=== PATIENT | male | born 1980 | race Caucasian/White ===

== ENCOUNTER 2020-05-03 19:40 | Inpatient (IN) | payer OTHER, MEDICAID, SELFPAY ==
--- NOTE | 2020-05-03 | DI.RAD.S_ITS ---
PROCEDURE: XR CHEST 1V INDICATIONS: Post chest tube placement TECHNIQUE: One view of the chest was acquired. COMPARISON: [facility], , XR CHEST 1V, 05/03/2020, 19:48. FINDINGS: Surgical changes and devices: There is interval placement of a small caliber right-sided chest tube, the tip is near apex. Lungs and pleura: There is re-expansion of right lung. No obvious pneumothorax is seen on the current study. Linear scarring/atelectasis in right upper lung field is seen. Left lung is clear. Mediastinum: Mediastinal contours appear normal. Heart size is normal. Bones and chest wall: No suspicious bony lesions. Overlying soft tissues appear unremarkable. IMPRESSION: Interval placement of a right-sided chest tube with re-expansion of right lung. No obvious pneumothorax is seen on the current study. Linear scarring/atelectasis in right upper lung field. Left lung is clear. Dictated by: Gabe Guzman M.D. on 05/03/2020 at 21:29 Approved by: Gabe Guzman M.D. on 05/03/2020 at 21:30
[2020-05-03 19:42] VITALS: BP 137/100; PULSE 76; RESP 13; TEMP 36.4; O2SAT 96; BMI 25.1
--- NOTE | 2020-05-03 19:48 | DI.RAD.S_ITS ---
PROCEDURE: XR CHEST 1V INDICATIONS: chest pain TECHNIQUE: One view of the chest was acquired. COMPARISON: None. FINDINGS: Surgical changes and devices: None. Lungs and pleura: Large right-sided pneumothorax is seen. Left lung is clear. Mediastinum: Mediastinal contours appear normal. Heart size is normal. Bones and chest wall: No suspicious bony lesions. Overlying soft tissues appear unremarkable. IMPRESSION: Large right pneumothorax. Findings were reported to Dr. Severino in the ER at 8:13 p.m. On 05/03/2020. Dictated by: Gabe Guzman M.D. on 05/03/2020 at 20:11 Approved by: Gabe Guzman M.D. on 05/03/2020 at 20:14
[2020-05-03 19:57] VITALS: BMI 25.1
[2020-05-03 20:00] LABS: Add Manual Diff / Slide Review NO; Basophils Absolute Auto 100 /uL (0-100); Basophils Percent Auto 0.7 % (0-2); Eosinophils Absolute Auto 300 /uL (0-450); Eosinophils Percent Auto 1.8 % (2-4); Hematocrit 39.6 % (41-53); Hemoglobin 13.1 g/dL (13.5-17.5); Lymphocytes Absolute Auto 3000 /uL (1100-4500); Lymphocytes Percent Auto 21.1 % (25-40); Mean Corpuscular HGB Conc 33.1 % (30-36); Mean Corpuscular Hemoglobin 29.6 PG (26-34); Mean Corpuscular Volume 89.7 fL (80-100); Monocytes Absolute Auto 900 /uL (0-900); Monocytes Percent Auto 6.5 % (3-14); Neutrophils Absolute Auto 9800 /uL (1500-7000); Neutrophils Percent Auto 69.9 % (50-75); Platelet Count 339 X10^3/uL (150-400); Red Blood Cell Count 4.42 X10^6/uL (4.5-5.9); Red Cell Distribution Width 13.4 % (11.6-14.8)
[2020-05-03 20:08] LABS: INR 1.1 (0.9-1.3); Prothrombin Time 12.1 SECONDS (10.1-12.7)
[2020-05-03 20:10] LABS: PTT Partial Thromboplastin Tim 32 SECONDS (26.4-36.2)
[2020-05-03 20:11] VITALS: BP 127/86; PULSE 84; RESP 22; O2SAT 97
[2020-05-03 20:12] LABS: Alanine Aminotransferase 30 IU/L (<50); Albumin 4.3 g/dL (3.5-5.0); Albumin Globulin Ratio 1.4 (1.0-2.8); Alkaline Phosphatase 52 U/L (38-126); Aspartate Aminotransferase 30 IU/L (17-59); Bilirubin Total 0.6 mg/dL (0.2-1.3); Blood Urea Nitrogen 17 mg/dL (9-20); Calcium 9.4 mg/dL (8.4-10.2); Carbon Dioxide 28 mmol/L (22-32); Chloride 102 mmol/L (98-107); Creatine Kinase 83 U/L (55-170); Estimated Glomerular Filt Rate > 60.0 mL/min (>60); Glucose 122 mg/dL (70-100); Lipase 54 U/L (23-300); Potassium 3.8 mmol/L (3.4-5.1); Sodium 136 mmol/L (137-145); Total Protein 7.3 g/dL (6.3-8.2)
--- NOTE | 2020-05-03 20:14 | ED.CHESTPAIN ---
HPI - Chest Pain General Chief Complaint: Chest Pain Stated Complaint: Pain in his chest, hard to breath,cough Time Seen by Provider: 05/03/20 20:14 Source: patient Mode of arrival: Ambulatory Limitations: no limitations History of Present Illness HPI narrative: Otherwise healthy 40-year-old male here for evaluation of chest discomfort and shortness of breath. Patient states that he has been short of breath for the past couple days however this morning symptoms seemed to acutely get worse. They have been continuing throughout the day. Since the sudden increase in his symptoms he does not think that they have worsened since that time. He has never had anything like this in the past. Patient states that he does smoke methamphetamine and his symptoms did seem to worsen shortly after smoking this morning. Denies any other medications. Denies any other medical problems. Describes the pain as sharp on his right side. Related Data Allergies Allergy/AdvReac Type Severity Reaction Status Date / Time No Known Drug Allergies Allergy Verified 05/03/20 19:49 Review of Systems Constitutional Constitutional: Denies fever(s) and Denies headache(s) ENT Ears, Nose, Mouth, and Throat: Denies headache(s) Cardiovascular Cardiovascular: Reports chest pain, Reports chest pain at rest, Denies rapid heart rate, Denies irregular heart rhythm, Reports dyspnea and Reports dyspnea on exertion Respiratory Respiratory: Denies cough, Reports dyspnea and Reports dyspnea on exertion Gastrointestinal Gastrointestinal: Denies abdominal pain, Denies nausea and Denies vomiting Genitourinary Genitourinary: Denies dysuria Genitourinary: Denies dysuria Musculoskeletal Musculoskeletal: Denies arthralgias and Denies myalgias Integumentary/Breasts Skin/Breast: Denies rash Neurologic Neurologic: Denies behavioral changes and Denies headache(s) Psychiatric Psychiatric: Denies behavioral changes Hematologic/Lymphatic Hematologic/Lymphatic: Denies easy bleeding and Denies easy bruising Patient History Medical History Drug abuse (Acute) Social History household members: significant other Smoking Status: Current every day smoker Smoking Status: Current every day smoker tobacco type: vaping alcohol intake frequency: holidays/special occasions only Substance Use Type: heroin Exam Initial Vital Signs Initial Vital Signs: Vital Signs Temperature 97.5 F L 05/03/20 19:42 Pulse Rate 76 05/03/20 19:42 Respiratory Rate 13 05/03/20 19:42 Blood Pressure 137/100 H 05/03/20 19:42 Pulse Oximetry 96 05/03/20 19:42 Const General: cooperative, No comfortable (Uncomfortable), well developed and well groomed Limitations: mental status not altered HENFL Head: normal to inspection and normocephalic Resp Effort & Inspection: not labored, no retractions and tachypneic Auscultation: breath sounds absent on the right Cardio Rate: regular rate Rhythm: regular rhythm GI Inspection: non-distended Palpation: soft Skin Lesions: no lesions Rashes: no rashes Neuro General: patient alert and patient awake Cognition: normal cognition Speech: speech normal Extrem General: normal to inspection and capillary refill normal Psych Appearance: grossly normal and well kempt Procedures Chest Tube Chest Tube 1: Chest Tube Location: right and anterior axillary line Chest Tube Prep: Yes betadine prep and sterile drapes applied Local Anesthetic: lidocaine 1% and with epi Amount of anesthesia used (mL): 8 Post Procedure: sutured to skin and sterile dressing applied Tube Drainage: none Post Procedure CXR?: Yes Patient Tolerated Procedure: Yes Progress: Leonel pneumothorax pigtail catheter used Course Orders Ordered: ED Orders 05/03/20 21:51 Consult to General Surgery Urgent 05/04/20 06:00 XR chest 1V Stat Lorazepam (Ativan) 0.5 mg IV Q2HR PRN PRN Reason: Anxiety Last Admin: 05/04/20 00:42 Dose: 0.5 mg Documented by: CODI Morphine Sulfate (Morphine) 4 mg IV Q4HR PRN PRN Reason: Pain, Mild (1-3) Last Admin: 05/04/20 04:16 Dose: 4 mg Documented by: Admin: 05/03/20 22:34 Dose: 4 mg Documented by: MIR Ondansetron HCl (Zofran) 4 mg IV Q4HR PRN PRN Reason: Nausea And Vomiting Sodium Chloride (Normal Saline 0.9% Flush) 10 ml IV PRN PRN PRN Reason: Flush Last Admin: 05/04/20 04:16 Dose: 10 ml Documented by: CODI Sodium Chloride (Normal Saline 0.9% Flush) 10 ml IV BID NATALIIA Discontinued Medications Hydromorphone HCl (Dilaudid) 1 mg IV NOW ONE Stop: 05/03/20 20:43 Last Admin: 05/03/20 20:49 Dose: 1 mg Documented by: MERCY Vital Signs Vital signs: Vital Signs - 8 hr 05/03/20 19:42 Temperature 97.5 F L Pulse Rate 76 Respiratory Rate 13 Blood Pressure 137/100 H Pulse Oximetry 96 MDM - Chest Pain Lab Data Attestation: I reviewed the patient's lab results. Result diagrams: 05/03/20 19:48 05/03/20 19:48 Labs: Lab Results 05/03/20 05/03/20 05/03/20 Range/Units 19:48 19:48 19:48 WBC 14.0 H (4.5-11.0) X10^3/uL RBC 4.42 L (4.5-5.9) X10^6/uL Hgb 13.1 L (13.5-17.5) g/dL Hct 39.6 L (41-53) % MCV 89.7 (80-100) fL MCH 29.6 (26-34) PG MCHC 33.1 (30-36) % RDW 13.4 (11.6-14.8) % Plt Count 339 (150-400) X10^3/uL Neut % (Auto) 69.9 (50-75) % Lymph % (Auto) 21.1 L (25-40) % [place] % (Auto) 6.5 (3-14) % Eos % (Auto) 1.8 L (2-4) % Baso % (Auto) 0.7 (0-2) % Neut # (Auto) 9800 H (0593-2854) /uL Lymph # (Auto) 3000 (5182-1668) /uL [place] # (Auto) 900 (0-900) /uL Eos # (Auto) 300 (0-450) /uL Baso # (Auto) 100 (0-100) /uL PT 12.1 (10.1-12.7) SECONDS INR 1.1 (0.9-1.3) APTT 32 (26.4-36.2) SECONDS Sodium 136 L (137-145) mmol/L Potassium 3.8 (3.4-5.1) mmol/L Chloride 102 (98-107) mmol/L Carbon Dioxide 28 (22-32) mmol/L BUN 17 (9-20) mg/dL Creatinine 0.74 (0.66-1.25) mg/dL Estimated GFR > 60.0 (>60) mL/min BUN/Creatinine Ratio 23.0 H (6-22) Glucose 122 H (70-100) mg/dL Calcium 9.4 (8.4-10.2) mg/dL Total Bilirubin 0.6 (0.2-1.3) mg/dL AST 30 (17-59) IU/L ALT 30 (<50) IU/L Alkaline Phosphatase 52 (38-126) U/L Total Creatine Kinase 83 (55-170) U/L CK-MB (CK-2) TNP CK-MB (CK-2) Rel Index TNP Troponin I < 0.012 (0.01-0.034) ng/mL Total Protein 7.3 (6.3-8.2) g/dL Albumin 4.3 (3.5-5.0) g/dL Globulin 3.0 (1.7-4.1) g/dL Albumin/Globulin Ratio 1.4 (1.0-2.8) Lipase 54 (23-300) U/L COVID-19 PCR (Negative) 05/03/20 Range/Units 20:21 WBC (4.5-11.0) X10^3/uL RBC (4.5-5.9) X10^6/uL Hgb (13.5-17.5) g/dL Hct (41-53) % MCV (80-100) fL MCH (26-34) PG MCHC (30-36) % RDW (11.6-14.8) % Plt Count (150-400) X10^3/uL Neut % (Auto) (50-75) % Lymph % (Auto) (25-40) % [place] % (Auto) (3-14) % Eos % (Auto) (2-4) % Baso % (Auto) (0-2) % Neut # (Auto) (3854-0959) /uL Lymph # (Auto) (2436-4749) /uL [place] # (Auto) (0-900) /uL Eos # (Auto) (0-450) /uL Baso # (Auto) (0-100) /uL PT (10.1-12.7) SECONDS INR (0.9-1.3) APTT (26.4-36.2) SECONDS Sodium (137-145) mmol/L Potassium (3.4-5.1) mmol/L Chloride (98-107) mmol/L Carbon Dioxide (22-32) mmol/L BUN (9-20) mg/dL Creatinine (0.66-1.25) mg/dL Estimated GFR (>60) mL/min BUN/Creatinine Ratio (6-22) Glucose (70-100) mg/dL Calcium (8.4-10.2) mg/dL Total Bilirubin (0.2-1.3) mg/dL AST (17-59) IU/L ALT (<50) IU/L Alkaline Phosphatase (38-126) U/L Total Creatine Kinase (55-170) U/L CK-MB (CK-2) CK-MB (CK-2) Rel Index Troponin I (0.01-0.034) ng/mL Total Protein (6.3-8.2) g/dL Albumin (3.5-5.0) g/dL Globulin (1.7-4.1) g/dL Albumin/Globulin Ratio (1.0-2.8) Lipase (23-300) U/L COVID-19 PCR Negative (Negative) Imaging Data Post chest tube placement: Radiologist's Impression: [address] [address] XRay Report Signed Patient: Gary Stiles#: [id number] : 1980Acct:[id number] Age/Sex: 40 / MDate of Service: 05/03/20 Loc: ED Accession Number: [id number] Procedure: XR chest 1V Ordering Provider: Dipak Severino D.O. PROCEDURE: XR CHEST 1V INDICATIONS: Post chest tube placement TECHNIQUE: One view of the chest was acquired. [facility], 19:48. FINDINGS: Surgical changes and devices: There is interval placement of a small caliber right-sided chest tube, the tip is near apex. Lungs and pleura: There is re-expansion of right lung. No obvious pneumothorax is seen on the current study. Linear scarring/atelectasis in right upper lung field is seen. Left lung is clear. Mediastinum: Mediastinal contours appear normal. Heart size is normal. Bones and chest wall: No suspicious bony lesions. Overlying soft tissues appear unremarkable. IMPRESSION: Interval placement of a right-sided chest tube with re-expansion of right lung. No obvious pneumothorax is seen on the current study. Linear scarring/atelectasis in right upper lung field. Left lung is clear. Dictated by: Gabe Guzman M.D. on 05/03/2020 at 21:29 Approved by: Gabe Guzman M.D. on 05/03/2020 at 21:30 Chest x-ray: Radiologist's Impression: [address] [address] XRay Report Signed Patient: Gary Stiles#: [id number] : 1980Acct:[id number] Age/Sex: 40 / MDate of Service: 05/03/20 Loc: ED Accession Number: [id number] Procedure: XR chest 1V Ordering Provider: Dipak Severino D.O. PROCEDURE: XR CHEST 1V INDICATIONS: chest pain TECHNIQUE: One view of the chest was acquired. COMPARISON: None. FINDINGS: Surgical changes and devices: None. Lungs and pleura: Large right-sided pneumothorax is seen. Left lung is clear. Mediastinum: Mediastinal contours appear normal. Heart size is normal. Bones and chest wall: No suspicious bony lesions. Overlying soft tissues appear unremarkable. IMPRESSION: Large right pneumothorax. Findings were reported to Dr. Severino in the ER at 8:13 p.m. On 05/03/2020. Dictated by: Gabe Guzman M.D. on 05/03/2020 at 20:11 Approved by: Gabe Guzman M.D. on 05/03/2020 at 20:14 ECG Data Attestation: I personally reviewed and interpreted this ECG as follows: Prior ECG tracings: not available for review Interpretation: Sinus rhythm Ventricular rate is 73 Normal axis Normal QRS Normal QTC No ST T wave changes MDM Narrative Medical decision making narrative: Chest x-ray shows right-sided pneumothorax. A Leonel pneumothorax pigtail placed right anterior axillary line as described above without complication. His repeat chest x-ray shows re-expansion of the lung. I discussed the case with Dr. Hurst with general surgery who will admit for further evaluation and treatment. Discharge Plan Departure Patient Disposition: Admitted As Inpatient Clinical Impression: Spontaneous pneumothorax Discharge Date/Time: 05/03/20 22:15 Admit Date/Time: 05/03/20 21:53 Admit Provider: Clinton Hurst
[2020-05-03 20:25] LABS: HEMOLYSIS 15 (0-50); Troponin I < 0.012 ng/mL (0.01-0.034)
[2020-05-03 20:30] VITALS: BP 126/83; PULSE 82; RESP 24; O2SAT 95
[2020-05-03] MEDS: HYDROMORPHONE 1 MG INJ IV (20:49)
[2020-05-03 21:41] LABS: COVID19 -Nasal RAPID Negative (Negative)
[2020-05-03 22:26] VITALS: BMI 25.1
[2020-05-03] MEDS: MORPHINE 2 MG/ML INJ 4 MG IV (22:34)
[2020-05-03 22:47] VITALS: BP 124/76; PULSE 78; RESP 20; TEMP 36.7; O2SAT 98
--- NOTE | 2020-05-03 22:57 | PC.NURSE ---
2215- Patient admitted to room 231. Patient is alert and in obvious pain. Chest tube to Right chest, dennise pleur vac to 20cm suction. No leak appreciated. Patient assisted to the bed, trousers removed, oriented to the room. Declines to put any belongings in the safe. Patient medicated for pain per order.
[2020-05-03 23:40] VITALS: BP 112/70; PULSE 95; RESP 18; TEMP 37.1; O2SAT 97
[2020-05-04] VITALS (7 sets, daily range): BP systolic 112–127; BP diastolic 70–95; PULSE 68–88; RESP 14–17; TEMP 36.6–37.2; O2SAT 94–98
[2020-05-04] MEDS: LORazepam 2 MG/ML INJ 0.5 MG IV ×2 (00:42→23:28)
[2020-05-04] MEDS: SODIUM CHLORIDE 0.9% FLUSH 10 ML IV ×4 (04:16→23:28)
[2020-05-04] MEDS: MORPHINE 2 MG/ML INJ 4 MG IV ×3 (04:16→17:58)
--- NOTE | 2020-05-04 06:00 | DI.RAD.S_ITS ---
PROCEDURE: XR CHEST 1V INDICATIONS: Pneumothorax TECHNIQUE: One view of the chest was acquired. COMPARISON: [facility], , XR CHEST 1V, 05/03/2020, 21:11. FINDINGS: Surgical changes and devices: Right-sided pigtail chest tube has been repositioned over the mid chest. Lungs and pleura: Lungs are clear. No pleural effusions. Moderate sized right-sided pneumothorax. Mediastinum: Mediastinal contours appear normal. Heart size is normal. Bones and chest wall: No suspicious bony lesions. Overlying soft tissues appear unremarkable. IMPRESSION: Moderate-sized right-sided pneumothorax. Dictated by: Araceli Drew MD, PhD on 05/04/2020 at 8:44 Approved by: Araceli Drew MD, PhD on 05/04/2020 at 8:45
--- NOTE | 2020-05-04 06:40 | PM.HP.1 ---
History of Present Illness History of Present Illness Chief complaint: Pain in his chest, hard to breath,cough Patient History Medical History Drug abuse (Acute) Family & Social History Social History: household members significant other Prior Living Arrangements House Safety & Behavioral: Feels Safe in Current Yes Environment Been Physically Hurt or No Threatened By a Person Suicidal Ideation Description None Suicide Plan Description No Plan Tobacco & Substance use: Smoking Status Current every day smoker alcohol intake frequency holiday/special occasion Substance Use Type heroin Meds Home Medications and Allergies Allergies Allergy/AdvReac Type Severity Reaction Status Date / Time No Known Drug Allergies Allergy Verified 05/03/20 19:49 Review of Systems Review of Systems ROS: Yes All systems reviewed with the patient and are negative except as otherwise documented Exam Vital Signs (past 8 hours): - 05/03/20 22:47 05/03/20 23:40 05/04/20 04:05 Temperature 98.1 F 98.8 F 98.9 F Pulse Rate 78 95 H 88 Respiratory Rate 20 18 14 Blood Pressure 124/76 112/70 124/95 H Pulse Oximetry 98 97 94 Oxygen Delivery Method Room Air Oxygen Flow Rate 0 Narrative Exam Narrative: Patient complaining of moderate pain at the pigtail chest tube insertion site in the right chest Vital signs are stable he is afebrile Lungs have good breath sounds bilaterally Heart regular rhythm no murmur 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 No abdominal tenderness no masses Extremities are unremarkable Neurologic intact Objective Labs Result Diagrams: 05/03/20 19:48 05/03/20 19:48 Labs: Laboratory Results - last 24 hr 05/03/20 05/03/20 05/03/20 19:48 19:48 19:48 WBC 14.0 H RBC 4.42 L Hgb 13.1 L Hct 39.6 L MCV 89.7 MCH 29.6 MCHC 33.1 RDW 13.4 Plt Count 339 Neut % (Auto) 69.9 Lymph % (Auto) 21.1 L [place] % (Auto) 6.5 Eos % (Auto) 1.8 L Baso % (Auto) 0.7 Neut # (Auto) 9800 H Lymph # (Auto) 3000 [place] # (Auto) 900 Eos # (Auto) 300 Baso # (Auto) 100 PT 12.1 INR 1.1 APTT 32 Sodium 136 L Potassium 3.8 Chloride 102 Carbon Dioxide 28 BUN 17 Creatinine 0.74 Estimated GFR > 60.0 BUN/Creatinine Ratio 23.0 H Glucose 122 H Calcium 9.4 Total Bilirubin 0.6 AST 30 ALT 30 Alkaline Phosphatase 52 Total Creatine Kinase 83 CK-MB (CK-2) TNP CK-MB (CK-2) Rel Index TNP Troponin I < 0.012 Total Protein 7.3 Albumin 4.3 Globulin 3.0 Albumin/Globulin Ratio 1.4 Lipase 54 COVID-19 PCR 05/03/20 20:21 WBC RBC Hgb Hct MCV MCH MCHC RDW Plt Count Neut % (Auto) Lymph % (Auto) [place] % (Auto) Eos % (Auto) Baso % (Auto) Neut # (Auto) Lymph # (Auto) [place] # (Auto) Eos # (Auto) Baso # (Auto) PT INR APTT Sodium Potassium Chloride Carbon Dioxide BUN Creatinine Estimated GFR BUN/Creatinine Ratio Glucose Calcium Total Bilirubin AST ALT Alkaline Phosphatase Total Creatine Kinase CK-MB (CK-2) CK-MB (CK-2) Rel Index Troponin I Total Protein Albumin Globulin Albumin/Globulin Ratio Lipase COVID-19 PCR Negative Assessment & Plan Assessment & Plan narrative: Patient with a spontaneous right pneumothorax initial chest x-ray showing a total pneumothorax without tension. Emergency room physician placed a pigtail catheter in the right apex. This has shown full expansion of the right lung. Patient continues to have a small air leak with coughing noted in the Pleur-evac. Plans continue suction on the right pigtail chest tube serial x-rays. Patient is a known heroin user and we will observe his status accordingly.
--- NOTE | 2020-05-04 13:27 | CM.DANOTE ---
DCP assessment: EMR reviewed: patient is a 40 yr old male who was admitted for Spontaneous Pneumothorax. Patients PCP is Dr. Hurst. Cm/Rn met with patient barry prior to him falling asleep during visit. patient was alert and oriented x3 at time of visit. Patient has a HX of heroin use and currently lives in [place] with his father and significant other. patient stated he does not want treatment for his heroin use at this time. However patient did seem to waiver on this statement a few moments later. Cm/Rn will check in with patient agian tomorrow to get a clearer idea if patient will want IP rehab for his heroin use or not at D/C. Patient did stated he is Independent with all ADL's at baseline. Patient at this point became vary tired and was unable to stay awake. Cm/Rn will follow up with patient again tomorrow to determine if there are any resources he will need. I: [employer] and Medicaid. Plan: D/C home with OP rehab information or IP rehab depending on recovery and patient choice for rehab... CM will follow up tomorrow to determine safe d/C plan. Juana Tesfaye RN Discharge Planning/Care Management CM Discharge Assessment Start: 05/04/20 13:22 Freq: Status: Active Protocol: Document 05/04/20 13:22 HS (Rec: 05/04/20 13:26 HS [id number]) Discharge Planning Assessment Assigned Litigation Secretary Juana Tesfaye RN DPOA/Assigned Designee Name Pineda Stiles (father) Contact Information [phone] Advance Directives? No History Provided By Medical Record Has Patient been admitted in last 30 No days? Prior Living Arrangements House Household Members significant other,family Comment patient lives with father and significant other Independent with ADL's Yes Caregiver for Another No Discharge Plan Home with Home Health Referrals Initiated Home Health Medicare Choice List Provided Yes Whiteboard Updated in Patient Room with Yes name and ext. # of Litigation Secretary Review Status In Process Next Review Type Continued Stay Review
[2020-05-04] MEDS: KETOROLAC 30 MG/ML VIAL IV (14:11)
--- NOTE | 2020-05-04 18:48 | PC.NURSE ---
Evening shift note Pt resting in bed, A/Ox3, c/o pain 5/10. Chest tube to Right chest, dennise pleur vac to 20cm suction, was informed in report that there is a small leak, surgeon is aware. Assessment completed as documented, informed pt next pain med is due at 181, pt stated that he is fine until then. Bed low and locked, call light within reach, no further needs at this time, will continue to monitor.
[2020-05-05] VITALS (7 sets, daily range): BP systolic 113–132; BP diastolic 65–80; PULSE 72–90; RESP 16–18; TEMP 36.6–37.1; O2SAT 94–99
--- NOTE | 2020-05-05 07:40 | DI.RAD.S_ITS ---
PROCEDURE: XR CHEST 1V INDICATIONS: follow up for pneumothorax TECHNIQUE: One view of the chest was acquired. COMPARISON: [facility], , XR CHEST 1V, 05/04/2020, 6:45. FINDINGS: Surgical changes and devices: Right-sided chest tube is stable. Lungs and pleura: Lungs are clear. No pleural effusions. Right-sided pneumothorax is increased in size compared to May 04, 2020 now moderate to large. Mediastinum: Mediastinal contours appear normal. Heart size is normal. Bones and chest wall: No suspicious bony lesions. Overlying soft tissues appear unremarkable. IMPRESSION: Enlarging right-sided pneumothorax. Finding discussed with Carrie Sanabria RN of the ordering physician's office on May 05, 2020 at 10:15 a.m. Dictated by: Araceli Drew MD, PhD on 05/05/2020 at 8:44 Approved by: Araceli Drew MD, PhD on 05/05/2020 at 10:15
--- NOTE | 2020-05-05 10:43 | P.PN_ITS ---
Subjective Subjective Date Patient Seen: 05/05/20 Time Patient Seen: 10:43 Interval history: No acute events overnight. Pt satting 94-99% on room air. Pt denies pain or SOB. Exam Vital Signs (past 8 hours): - 05/05/20 08:35 05/05/20 10:26 Temperature 98.8 F Pulse Rate 72 Respiratory Rate 17 Blood Pressure 121/65 Pulse Oximetry 98 97 Oxygen Delivery Method Room Air Oxygen Flow Rate 2 Narrative Exam Narrative: GENERAL: Well groomed and cooperative. Appears stated age. Answers questions promptly and appropriately. Vital signs noted. HENT: Normocephalic, atraumatic. Hearing intact. Oral mucosa is pink and moist. EYES: Conjunctiva pink, sclera white, no periorbital swelling. CARDIOVASCULAR: Regular rate. No pedal edema. RESPIRATORY: Non-tachypneic, breathing comfortably on room air. Pigtail tube in place on right chest, with moderate leak on chest tube box, and intermittent tidaling seen GASTROINTESTINAL: Abdomen soft and non-distended GENITALURINARY: No flank tenderness. MUSCULOSKELETAL: Equal tone and mass bilaterally. SKIN: Warm, dry, soft, appropriate color for ethnicity. No other lesions, rashes, or wounds. NEURO: Alert and Oriented X 3. No gross sensory deficits, or cognitive issues. PSYCH: Appropriate affect and mood. Objective Imaging Chest x-ray: My impression: Reviewed all CXR's since ER. Yesterday and today CXR's show enlarging pneumo. Radiologist's impression: Enlarging right-sided pneumothorax Labs Result Diagrams: 05/03/20 19:48 05/03/20 19:48 Assessment & Plan Assessment and plan (1) Spontaneous pneumothorax: Status: Acute (2) Smoker: Status: Acute Assessment & Plan narrative: This is a 40-year-old man on hospital day 3 from a spontaneous pneumothorax for which he had a right pigtail chest tube placed and was admitted to the hospital. This morning a noted on his chest x-ray that his pneumothorax on the right side has not resolved, and may be slightly larger than yesterday. His chest tube appears to be in a good position, as there is tidal ing seen on the chest tube box. However, he has a moderate leak and this enlarging pneumo. Locally he is not really symptomatic from the enlarging pneumo and so we have some time to try to get the lung to expand. I have explained to him that he may need to have his chest tube repositioned or larger chest tube placed. I explained him that if the lung does not fully expand, we will not be able to remove the chest tube, and he may need to be transferred for management by a thoracic surgeon. He emphatically refuses having the chest tube manipulated replaced at this time. He is not using an incentive spirometer, nasal cannula oxygen, or any ambulation. He is motivated to try anything short of a procedure to replace or just his chest tube. We will try these interventions, prior to adjusting or replacing the chest tube. Plan: DVT prophylaxis Repeat chest x-ray tomorrow morning, or sooner if symptoms arise Use incentive spirometer as much as possible Cough, deep breathe Nasal cannula oxygen Ambulate while chest tube connected to suction Continue chest tube to 20 cm of water on the box, and continuous wall suction Bowel regimen COVID-19 COVID-19 status: Negative Result date/Date tested (Pos, Neg/Pending): 05/03/20 Time Spent With Patient Time with patient: 25 - 35 minutes Quality VTE Deep Vein Thrombosis/Pulmonary Embolism Present on Admission: No
[2020-05-05] MEDS: SODIUM CHLORIDE 0.9% FLUSH 10 ML IV ×2 (10:51→21:15)
[2020-05-05] MEDS: LORazepam 2 MG/ML INJ 0.5 MG IV ×2 (10:51→16:39)
[2020-05-05] MEDS: KETOROLAC 30 MG/ML VIAL IV (10:51)
--- NOTE | 2020-05-05 11:05 | PC.NURSE ---
PT QUIET AND NOT VERY TALKATIVE- INSTRUCTED USE OF I-S AND HE USES PROPERLY TO A LEVEL OF 2500+ X 10-12X FEW TIMES THIS AM, LUNGS DIMINISHED BUT CLEAR- REFUSED BOTH STOOL SOFTENER AND HEPARIN SQ - EXPLAINED THE RATIONALE FOR BOTH - HE CONTINUES TO DECLINE AT THIS TIME- WILL ASK AGAIN IN A BIT, HE REPORTS HAVING NO BM SINCE ADMIT AND STATES THIS IS NOT ABNORMAL FOR HIM TO GO EVERY FEW DAYS- PO INTAKE MARGINAL - STRONGLY ENCOURAGED TO BE UP AND AROUND IN ROOM AND PT HAS BEEN MINIMALLY COMPLIANT WITH THIS REQUEST BY BOTH AND THIS RN
[2020-05-05] MEDS: DOCUSATE 100 MG CAPSULE PO (14:56)
[2020-05-05] MEDS: OXYCODONE IR 5 MG TABLET PO (14:56)
[2020-05-06] VITALS (16 sets, daily range): BP systolic 117–145; BP diastolic 77–90; PULSE 72–106; RESP 10–18; TEMP 36.3–37.3; O2SAT 94–98; BMI 22.5
--- NOTE | 2020-05-06 | DI.RAD.S_ITS ---
PROCEDURE: XR CHEST 1V INDICATIONS: new chest tube. TECHNIQUE: One view of the chest was acquired. COMPARISON: [facility], CR, XR CHEST 1V, 05/05/2020, 5:49. [facility], CR, XR CHEST 1V, 05/04/2020, 6:45. [facility], CR, XR CHEST 1V, 05/03/2020, 21:11. [facility], CR, XR CHEST 1V, 05/03/2020, 19:48. [facility], CR, XR CHEST 1V, 05/06/2020, 5:31. FINDINGS: Surgical changes and devices: Since the prior examination, the right-sided pleural drain has been removed and replaced with a standard chest tube. The chest tube is seen along the midline, pointed superiorly. Lungs and pleura: There is a trace remaining right-sided pneumothorax. No left-sided pneumothorax. No pleural effusions or infiltrates are seen. Mediastinum: Mediastinal contours appear normal. Heart size is normal. Bones and chest wall: No suspicious bony lesions. Overlying soft tissues appear unremarkable. IMPRESSION: Placement of a new right-sided chest tube, with near complete resolution of the previously seen right-sided pneumothorax. Dictated by: Beny Parker M.D. on 05/06/2020 at 15:40 Approved by: Beny Parker M.D. on 05/06/2020 at 15:41
[2020-05-06] MEDS: ACETAMINOPHEN 325 MG TABLET 650 MG PO (01:52)
[2020-05-06] MEDS: OXYCODONE IR 5 MG TABLET PO ×2 (01:52→20:40)
--- NOTE | 2020-05-06 05:49 | PC.NURSE ---
Broker Note-Patient has been awake all night, sitting up in bed drawing. Using I.S., has 2L NC on intermittently, SpO2 >94%, denies respiratory distress, CT patent, still has 1+ intermittent airleak, scant serous drainage, Rt LS diminished with some airflow auscultated. Medicated with 5mg oxycodone and Tylenol for pain. VSS. CXR done.
--- NOTE | 2020-05-06 07:00 | DI.RAD.S_ITS ---
PROCEDURE: XR CHEST 1V INDICATIONS: interval change, pneumothorax TECHNIQUE: One view of the chest was acquired. COMPARISON: [facility], , XR CHEST 1V, 05/05/2020, 5:49. FINDINGS: Surgical changes and devices: Right-sided chest tube is stable. Lungs and pleura: Right-sided pneumothorax increased in size compared to May 05, 2020. Lungs are clear. No pleural effusions. Mediastinum: Mediastinal contours appear normal. Heart size is normal. Bones and chest wall: No suspicious bony lesions. Overlying soft tissues appear unremarkable. IMPRESSION: Right-sided pneumothorax increased in size compared to May 05, 2020. Dictated by: Araceli Drew MD, PhD on 05/06/2020 at 8:02 Approved by: Araceli Drew MD, PhD on 05/06/2020 at 8:03
--- NOTE | 2020-05-06 07:45 | PM.PN.1 ---
Subjective Subjective Date Patient Seen: 05/06/20 Time Patient Seen: 07:45 Interval history: pt has continued to use IS without re-expansion of his lung on CXR. He denies SOB. Exam Vital Signs (past 8 hours): - 05/06/20 01:06 05/06/20 01:45 Temperature 98.6 F Pulse Rate 76 Respiratory Rate 18 Blood Pressure 117/81 Pulse Oximetry 97 97 Oxygen Delivery Method Room Air,Nasal Cannula Oxygen Flow Rate 2 Narrative Exam Narrative: GENERAL: Well groomed and cooperative. Appears stated age. Answers questions promptly and appropriately. Vital signs noted. HENT: Normocephalic, atraumatic. Hearing intact. Oral mucosa is pink and moist. EYES: Conjunctiva pink, sclera white, no periorbital swelling. CARDIOVASCULAR: Regular rate. No pedal edema. RESPIRATORY: Non-tachypneic, breathing comfortably on room air. Pigtail tube in place on right chest, no leak on chest tube box, no tidaling GASTROINTESTINAL: Abdomen soft and non-distended GENITALURINARY: No flank tenderness. MUSCULOSKELETAL: Equal tone and mass bilaterally. SKIN: Warm, dry, soft, appropriate color for ethnicity. No other lesions, rashes, or wounds. NEURO: Alert and Oriented X 3. No gross sensory deficits, or cognitive issues. PSYCH: Appropriate affect and mood. Objective Imaging Chest x-ray: My impression: Right lung not re-expanded, worse than yesterday; tube looks kinked Radiologist's impression: Read pending Labs Result Diagrams: 05/03/20 19:48 05/03/20 19:48 Assessment & Plan Assessment and plan (1) Spontaneous pneumothorax: Status: Acute (2) Smoker: Status: Acute Assessment & Plan narrative: This is a 40-year-old man on hospital day 4 from a spontaneous pneumothorax for which he had a right pigtail chest tube placed on 05/03 and was admitted to the hospital. Yesterday his CXR showed a large pneumo and I discussed with him the need for a new chest tube. He preferred to work on IS to try and expand the lung. His chest tube was working as we could see tidaling and a leak, but today his CXR is worse, and the chest tube appears kinked. There is no tidaling on inspiration, so I believe the tube is not working at all. I have recommended a replacement with a larger tube. The patient refuses to have this done without sedation. I will discuss with anesthesia about doing it in the OR or ICU later today. He has eaten recently, so we will need to wait until later today for that reason. Plan: hold DVT prophylaxis NPO Chest tube placement under anesthesia later today COVID-19 COVID-19 status: Negative Result date/Date tested (Pos, Neg/Pending): 05/03/20 Time Spent With Patient Time with patient: 25 - 35 minutes Quality VTE Deep Vein Thrombosis/Pulmonary Embolism Present on Admission: No
[2020-05-06] MEDS: SODIUM CHLORIDE 0.9% 1,000 ML 80 ML IV (08:20)
[2020-05-06] MEDS: SODIUM CHLORIDE 0.9% FLUSH 10 ML IV (08:20)
--- NOTE | 2020-05-06 09:23 | CM.DPC ---
DCP Cont: Per Surgeon, pt's chest tube seems to be kinked and not working and plan for new larger chest tube placement today around 1400 in the O.R. under sedation. SW met bedside with pt and explained role and he confirms that his father and [facility] are available and able to provide assist at d/c and pt states that he is fairly upset that he has to undergo another chest tube placement. SW inquired about pt's heroin use and he confirms that he has used heroin for a long time, this is not something new and is very aware of the community resources for treatment including Medication Assisted Tx options for Suboxone/Methadone clinics and is currently not interested in community resources and feels he knows how to access them if he later changes his mind. Pt still in some discomfort and willing to participate but provides very brief answers. Pt's one concern is his higher risk of future need for chest tube and may be more willing to consider reduction in heroin use if he understands at d/c that drug use could increase his risk for spontaneous pneumothorax. Plan: CATHY printed off additional community CD tx resources to provide to pt at d/c with discharge pwk and plan is home in a few days with [facility] Other for assist. SW to follow after second chest tube placement today around 1400. JAMIA Torres
--- NOTE | 2020-05-06 15:19 | PC.NURSE ---
Day Shift Pt NPO from 0700 for chest tube replacement in OR today. Pt denied pain throughout shift. Brought down to OR by 2 RNs at 1515.
[2020-05-06] MEDS: CEFAZOLIN 2 GM/100 ML FROZ.PIGGY IV (15:38)
--- NOTE | 2020-05-06 16:05 | P.OP_ITS ---
Operative Date/Time/Diagnoses Date of procedure: 05/06/20 Time of procedure: 16:05 Pre-op diagnosis: persistent pneumothorax with pigtail chest tube in place Post-op diagnosis: same Procedure & Clinicians Procedure: right chest tube thoracostomy Same procedure as scheduled: Yes Indications: 40 yo man with spontaneous pneumothorax, with persistent pneumothorax after initial re-expansion following pigtail chest tube placement. Because of pain and discomfort during his prior chest tube procedure causing severe distress, the patient refused chest tube replacement without anesthesia. The anesthesiologist was consulted to provide anesthesia for the procedure. Surgeon: Lisa Nino Click Yes if Unassisted: Yes Anesthesia Type: General Operative Notes Findings: Appropriate bell of air upon entering the chest cavity, good re- expansion of the lung on post procedure CXR Specimen(s): none sent Applied: other (Right 28 Fr. chest tube) Estimated Blood Loss (mL): 1 Procedure in detail: The patient was brought into the OR, placed supine on the OR table. Sequential compression devices were placed on both legs and turned on. Appropriate pre operative antibiotics were given. General anesthesia was induced and the patient was intubated with an LMA. The pigtail chest tube was removed. The right chest was prepped and draped in sterile fashion for chest tube placement. Surgical timeout was conducted. Local anesthetic was infiltrated over the fourth rib in the mid axillary line. A 2cm incision was made over the rib with a 15 blade. Dissection was carried down through the muscle of the chest wall, just over the rib and the pleura was opened bluntly with a hemostat. A bell of air came out of the chest cavity. A 28 Fr chest tube was introduced and advanced toward the apex. The chest tube was secured to the skin with O silk suture, and dressed with 4x4's and silk tape. It was connected to the chest tube box and adjusted to 20cm H2O on the box, and the box was connected to continuous wall suction. The patient was then awakened from anesthesia and extubated. Needle, sponge, and instrument counts were correct x 2 at the end of the case. The patient was transferred to the PACU in stable condition. Post procedure CXR was completed and showed good re-expansion of the right lung. Complications: none Post-operative Condition: stable Disposition: PACU
--- NOTE | 2020-05-06 16:19 | SUR.OPER ---
28 fr straight chest tube placed
[2020-05-06] MEDS: BUPIVACAINE 0.25% W/ EPI 30 ML VIAL INJ (16:23)
[2020-05-06] MEDS: KETOROLAC 30 MG/ML VIAL IV (16:31)
[2020-05-06] MEDS: DOCUSATE 100 MG CAPSULE PO (20:39)
[2020-05-07] VITALS (7 sets, daily range): BP systolic 119–130; BP diastolic 76–81; PULSE 73–102; RESP 16–18; TEMP 36.6–36.9; O2SAT 94–98
[2020-05-07] MEDS: MORPHINE 4 MG/ML INJ IV ×2 (00:08→08:24)
[2020-05-07] MEDS: SODIUM CHLORIDE 0.9% FLUSH 10 ML IV ×4 (00:09→22:01)
[2020-05-07 05:06] LABS: Add Manual Diff / Slide Review NO; Basophils Absolute Auto 100 /uL (0-100); Basophils Percent Auto 0.7 % (0-2); Eosinophils Absolute Auto 400 /uL (0-450); Eosinophils Percent Auto 3.7 % (2-4); Hematocrit 38.5 % (41-53); Hemoglobin 12.8 g/dL (13.5-17.5); Lymphocytes Absolute Auto 3400 /uL (1100-4500); Lymphocytes Percent Auto 27.8 % (25-40); Mean Corpuscular HGB Conc 33.2 % (30-36); Mean Corpuscular Hemoglobin 30.1 PG (26-34); Mean Corpuscular Volume 90.6 fL (80-100); Monocytes Absolute Auto 900 /uL (0-900); Monocytes Percent Auto 7.1 % (3-14); Neutrophils Absolute Auto 7300 /uL (1500-7000); Neutrophils Percent Auto 60.7 % (50-75); Platelet Count 332 X10^3/uL (150-400); Red Blood Cell Count 4.25 X10^6/uL (4.5-5.9); White Blood Cell Count 12.1 X10^3/uL (4.5-11.0)
--- NOTE | 2020-05-07 07:00 | DI.RAD.S_ITS ---
PROCEDURE: XR CHEST 1V INDICATIONS: pneumothorax TECHNIQUE: One view of the chest was acquired. COMPARISON: [facility], , XR CHEST 1V, 05/06/2020, 16:07. FINDINGS: Surgical changes and devices: Right-sided chest tube. Lungs and pleura: Lungs are clear. No pleural effusions. Small a buckle right-sided pneumothorax is stable in size. Mediastinum: Mediastinal contours appear normal. Heart size is normal. Bones and chest wall: No suspicious bony lesions. Overlying soft tissues appear unremarkable. IMPRESSION: Stable small apical right pneumothorax. Dictated by: Araceli Drew MD, PhD on 05/07/2020 at 8:43 Approved by: Araceli Drew MD, PhD on 05/07/2020 at 8:44
[2020-05-07] MEDS: LORazepam 2 MG/ML INJ 0.5 MG IV ×2 (08:27→12:54)
[2020-05-07] MEDS: OXYCODONE IR 5 MG TABLET PO ×3 (10:42→22:01)
--- NOTE | 2020-05-07 14:23 | PC.NURSE ---
AM shift Pt writhing in bed this AM, 10/10 pain. Medicated with Morphine and ativan. Chest tube with minimal output overnight, cont suction at the wall. 20cm Added Toradol and oxycodone, staggering meds to get better pain control. Pt expresses frustration with increased pain since increased size of Chest tube yesterday. Discussed POC and plan for meds to stagger. Pt appears agreeable to this plan. Declined ritesh, education about constipation r/t increased opiate use. Pt verbalizes understanding, but concerned about having bowel movement in significant pain. Discussed options of miralax, will discuss with Dr Nino. Report given to Soraida BENNETT for 221 acute care transfer. Enc Pt use of IS, which he is doing very well this afternoon, while pain is better controlled. Continue to enc ambulation in room while attached to suction. Pt is sitting up at edge of bed and mobilzing to use urinal with assist.
--- NOTE | 2020-05-07 16:32 | P.PN_ITS ---
Subjective Subjective Date Patient Seen: 05/07/20 Time Patient Seen: 16:32 Interval history: Pt had some pain at the chest tube insertion site last night. Denies SOB. Exam Vital Signs (past 8 hours): - 05/07/20 15:45 Temperature 98.2 F Pulse Rate 73 Respiratory Rate 17 Blood Pressure 119/78 Pulse Oximetry 95 Oxygen Delivery Method Room Air Oxygen Flow Rate 0 Narrative Exam Narrative: GENERAL: Sleeping, but awakes upon calling his name; Answers questions promptly and appropriately. Vital signs noted. HENT: Normocephalic, atraumatic. Hearing intact. Oral mucosa is pink and moist. EYES: Conjunctiva pink, sclera white, no periorbital swelling. CARDIOVASCULAR: Regular rate. No pedal edema. RESPIRATORY: Non-tachypneic, breathing comfortably on room air. 28 [address] chest tube in place on right chest; no apparent leak GASTROINTESTINAL: Abdomen soft and non-distended GENITALURINARY: No flank tenderness. MUSCULOSKELETAL: Equal tone and mass bilaterally. SKIN: Warm, dry, soft, appropriate color for ethnicity. No other lesions, rashes, or wounds. NEURO: Alert and Oriented X 3. No gross sensory deficits, or cognitive issues. PSYCH: Appropriate affect and mood. Objective Imaging Chest x-ray: My impression: Tiny apical pneumo on right Labs Result Diagrams: 05/07/20 04:36 05/03/20 19:48 Labs: Laboratory Results - last 24 hr 05/07/20 04:36 WBC 12.1 H RBC 4.25 L Hgb 12.8 L Hct 38.5 L MCV 90.6 MCH 30.1 MCHC 33.2 RDW 13.0 Plt Count 332 Neut % (Auto) 60.7 Lymph % (Auto) 27.8 [place] % (Auto) 7.1 Eos % (Auto) 3.7 Baso % (Auto) 0.7 Neut # (Auto) 7300 H Lymph # (Auto) 3400 [place] # (Auto) 900 Eos # (Auto) 400 Baso # (Auto) 100 Assessment & Plan Assessment & Plan narrative: 40 yo man POD#1 s/p chest tube replacement with 28Fr chest tube. Tiny apical pneumo remains on CXR. Will continue suction, IS, and recheck CXR tomorrow AM. Plan: DVT ppx ambulate in room chest tube to suction pain control with PO and IV pain med AM CXR tomorrow COVID-19 COVID-19 status: Negative Result date/Date tested (Pos, Neg/Pending): 05/03/20 Time Spent With Patient Time with patient: 15-24 minutes Quality VTE Deep Vein Thrombosis/Pulmonary Embolism Present on Admission: No
[2020-05-07] MEDS: DOCUSATE 100 MG CAPSULE PO (22:01)
[2020-05-07] MEDS: HEPARIN 5,000 UNIT/ML VIAL 5000 UNIT SUBCUT (22:01)
[2020-05-08 00:55] VITALS: O2SAT 93
[2020-05-08] MEDS: MORPHINE 4 MG/ML INJ IV (00:58)
[2020-05-08] MEDS: SODIUM CHLORIDE 0.9% FLUSH 10 ML IV ×3 (00:59→21:28)
[2020-05-08 01:00] VITALS: BP 122/81; PULSE 83; RESP 16; TEMP 36.8; O2SAT 93
[2020-05-08] MEDS: OXYCODONE IR 5 MG TABLET PO (06:39)
--- NOTE | 2020-05-08 07:00 | DI.RAD.S_ITS ---
PROCEDURE: XR CHEST 1V INDICATIONS: resolving pneumothorax TECHNIQUE: One view of the chest was acquired. COMPARISON: [facility], CR, XR CHEST 1V, 05/03/2020, 19:48. [facility], CR, XR CHEST 1V, 05/05/2020, 5:49. [facility], CR, XR CHEST 1V, 05/06/2020, 5:31. [facility], CR, XR CHEST 1V, 05/06/2020, 16:07. [facility], CR, XR CHEST 1V, 05/07/2020, 5:20. FINDINGS: Surgical changes and devices: A thoracostomy tube is present on the right projecting to the medially at the T5-T6 level. Lungs and pleura: There is a small pneumothorax, unchanged. Lungs are clear. No pleural effusions. Mediastinum: Mediastinal contours appear normal. Heart size is normal. Bones and chest wall: No suspicious bony lesions. Overlying soft tissues appear unremarkable. Mild subcutaneous emphysema in the right hemithorax. IMPRESSION: Stable right apical pneumothorax. Dictated by: Anamika Wilson M.D. on 05/08/2020 at 9:11 Approved by: Anamika Wilson M.D. on 05/08/2020 at 9:14
--- NOTE | 2020-05-08 07:22 | P.PN_ITS ---
Subjective Subjective Date Patient Seen: 05/08/20 Time Patient Seen: 07:22 Interval history: No acute events over night. Pt is constipated and has pain at chest tube site. Exam Vital Signs (past 8 hours): - 05/08/20 00:55 05/08/20 01:00 Temperature 98.3 F Pulse Rate 83 Respiratory Rate 16 Blood Pressure 122/81 Pulse Oximetry 93 93 Oxygen Delivery Method Room Air Oxygen Flow Rate 0 Narrative Exam Narrative: GENERAL: Sleeping, but awakes upon calling his name; Answers questions promptly and appropriately. Vital signs noted. HENT: Normocephalic, atraumatic. Hearing intact. Oral mucosa is pink and moist. EYES: Conjunctiva pink, sclera white, no periorbital swelling. CARDIOVASCULAR: Regular rate. No pedal edema. RESPIRATORY: Non-tachypneic, breathing comfortably on room air. 28 [address] chest tube in place on right chest; no apparent leak or tidaling GASTROINTESTINAL: Abdomen soft and non-distended GENITALURINARY: No flank tenderness. MUSCULOSKELETAL: Equal tone and mass bilaterally. SKIN: Warm, dry, soft, appropriate color for ethnicity. No other lesions, elijah hes, or wounds. NEURO: Alert and Oriented X 3. No gross sensory deficits, or cognitive issues. PSYCH: Appropriate affect and mood. Objective Imaging Chest x-ray: My impression: Small apical pneumo, unchanged from yesterday, radiologist read pending Labs Result Diagrams: 05/07/20 04:36 05/03/20 19:48 Assessment & Plan Assessment and plan (1) Smoker: Status: Acute (2) Spontaneous pneumothorax: Status: Acute Assessment & Plan narrative: 40 yo man POD#2 s/p chest tube replacement with 28Fr chest tube. Tiny apical pneumo remains on CXR, unchanged from yesterday. Will DC wall suction and put to seal. Continue IS, and recheck CXR tomorrow AM. He is constipated and pain is not well controlled. Will increase oxy to 10 and add miralax. Plan: miralax PO pain med DVT ppx ambulate in room chest tube to seal pain control with PO and IV pain med AM CXR tomorrow COVID-19 COVID-19 status: Negative Result date/Date tested (Pos, Neg/Pending): 05/03/20 Time Spent With Patient Time with patient: 15-24 minutes Quality VTE Deep Vein Thrombosis/Pulmonary Embolism Present on Admission: No
[2020-05-08 08:09] VITALS: BP 134/74; PULSE 56; RESP 16; TEMP 36.9; O2SAT 97
[2020-05-08] MEDS: polyethylene glycoL 3350 17 GM POWD.PACK PO ×2 (09:17→21:28)
[2020-05-08] MEDS: HEPARIN 5,000 UNIT/ML VIAL 5000 UNIT SUBCUT ×2 (09:17→21:28)
[2020-05-08] MEDS: DOCUSATE 100 MG CAPSULE PO ×2 (09:17→21:27)
[2020-05-08] MEDS: OXYCODONE IR 5 MG TABLET 10 MG PO ×3 (11:17→21:28)
--- NOTE | 2020-05-08 12:32 | PC.NURSE ---
Patient given 10mg of oxycodone for complaints of pain 03/18. This seems to be effective for pain control. He has a chest tube that is no longer hooked up to suction and is at 20mm. Dressing is cdi. BS CTA and patient is on RA in the upper 90s. We will get him up to ambulate in the halls shortly. Eating bites at meals.
[2020-05-08 16:00] VITALS: BP 138/83; PULSE 97; RESP 16; TEMP 36.7; O2SAT 98
[2020-05-08 16:52] VITALS: O2SAT 96
[2020-05-08 23:35] VITALS: BP 127/92; PULSE 103; RESP 18; TEMP 36.9; O2SAT 96
[2020-05-09] VITALS (18 sets, daily range): BP systolic 107–152; BP diastolic 71–88; PULSE 63–115; RESP 8–33; TEMP 36.7–36.9; O2SAT 95–100
--- NOTE | 2020-05-09 | DI.RAD.S_ITS ---
PROCEDURE: XR CHEST 1V INDICATIONS: post tube removal r/oearly recurrence pneumothorax TECHNIQUE: One view of the chest was acquired. COMPARISON: [facility], CR, XR CHEST 1V, 05/09/2020, 14:18. FINDINGS: Surgical changes and devices: Status post removal of right chest tube. Right pneumothorax is slightly increased in size since earlier same day. There is right chest wall soft tissue gas as before. No new focal consolidation Lungs and pleura: Lungs are clear. No pleural effusions or pneumothorax. Mediastinum: Mediastinal contours appear normal. Heart size is normal. Bones and chest wall: No suspicious bony lesions. Overlying soft tissues appear unremarkable. IMPRESSION: Slight interval increase in small right pneumothorax, status post removal right chest tube. Recommend continued radiographic surveillance. Dictated by: Alan Marcum M.D. on 05/09/2020 at 15:34 Approved by: Alan Marcum M.D. on 05/09/2020 at 15:36
--- NOTE | 2020-05-09 | DI.RAD.S_ITS ---
PROCEDURE: XR CHEST 1V INDICATIONS: post placement of new tube TECHNIQUE: One view of the chest was acquired. COMPARISON: [facility], CR, XR CHEST 1V, 05/09/2020, 14:18. [facility], CR, XR CHEST 1V, 05/09/2020, 8:14. [facility], CR, XR CHEST 1V, 05/09/2020, 15:17. FINDINGS: Surgical changes and devices: A right-sided chest tube has been placed. Lungs and pleura: A trace right apical pneumothorax is seen, which is improved compared to the prior examination. Mediastinum: Mediastinal contours appear normal. Heart size is normal. Bones and chest wall: No suspicious bony lesions. Right-sided soft tissue gas is seen. IMPRESSION: Placement of a right-sided chest tube, with improvement in the pneumothorax, now trace radial buckle. Dictated by: Beny Parker M.D. on 05/09/2020 at 16:08 Approved by: Beny Parker M.D. on 05/09/2020 at 16:10
[2020-05-09] MEDS: OXYCODONE IR 5 MG TABLET 10 MG PO ×3 (01:39→21:15)
[2020-05-09] MEDS: OXYCODONE IR 5 MG TABLET PO (07:47)
--- NOTE | 2020-05-09 07:47 | DI.RAD.S_ITS ---
PROCEDURE: XR CHEST 1V INDICATIONS: pneumothorax TECHNIQUE: One view of the chest was acquired. COMPARISON: [facility], CR, XR CHEST 1V, 05/03/2020, 19:48. [facility], CR, XR CHEST 1V, 05/03/2020, 21:11. [facility], CR, XR CHEST 1V, 05/04/2020, 6:45. [facility], CR, XR CHEST 1V, 05/05/2020, 5:49. [facility], CR, XR CHEST 1V, 05/06/2020, 5:31. [facility], CR, XR CHEST 1V, 05/06/2020, 16:07. [facility], CR, XR CHEST 1V, 05/07/2020, 5:20. [facility], CR, XR CHEST 1V, 05/08/2020, 5:33. FINDINGS: Surgical changes and devices: A stable right-sided chest tube is seen. Lungs and pleura: There is a trace right apical pneumothorax seen, which is improved compared to the prior examination. Mediastinum: Mediastinal contours appear normal. Heart size is normal. Bones and chest wall: No suspicious bony lesions. Age-appropriate bony degenerative changes are seen. Mild dextroconvex scoliotic curvature is seen. Moderate right-sided soft tissue gas can be seen. IMPRESSION: Stable right-sided chest tube, with a trace right-sided pneumothorax, which is improved compared to the prior examination. Stable soft tissue gas. Dictated by: Beny Parker M.D. on 05/09/2020 at 7:47 Approved by: Beny Parker M.D. on 05/09/2020 at 7:48
[2020-05-09] MEDS: HEPARIN 5,000 UNIT/ML VIAL 5000 UNIT SUBCUT ×2 (08:55→21:15)
[2020-05-09] MEDS: DOCUSATE 100 MG CAPSULE PO ×2 (08:55→21:15)
[2020-05-09] MEDS: SODIUM CHLORIDE 0.9% FLUSH 10 ML IV ×2 (09:00→21:17)
[2020-05-09] MEDS: LORazepam 2 MG/ML INJ 0.5 MG IV ×2 (09:00→18:33)
--- NOTE | 2020-05-09 14:35 | P.DS_ITS ---
History of Present Illness History of Present Illness Date Patient Seen: 05/09/20 Time Patient Seen: 14:35 Chief complaint: Pain in his chest, hard to breath,cough Narrative: The patient is a gentleman who was admitted with a spontaneous pneumothorax. Discharge Providers Provider Date of admission: 05/03/20 21:53 Discharge Date: 05/12/20 Discharge provider: Donavan Holcomb MD Summary Hospital Course Discharge Diagnosis: Spontaneous pneumothorax Methamphetamine abuse Hospital Course: The patient had a pigtail catheter inserted with good reso lution initially of his pneumothorax. However there was a small area that was resistant to re-expansion and slowly became larger. He underwent deep sedation at his insistence in order to place a larger tube. With the insertion of this larger tube is lung re-expanded. There was no air leak and no modulation with respiration. The tube was taken off suction and a repeat x-ray showed a very tiny pneumothorax in the apex of the right lung. The tube was clamped for 3 hours and there was no expansion of this small pneumothorax. The tube was removed and the patient developed an immediate enlargement of his pneumothorax. Tube was replaced and there was no air leak and no modulation and the pn eumothorax resolved. He was observed on suction and taken off suction for today and there was still a fully expanded lung. The tube was clamped for 24 hours and the lung remained inflated. The tube was removed and his post removal x-ray showed complete expansion of his lung. Exam Vital Signs (past 8 hours): - 05/09/20 07:00 05/09/20 08:00 05/09/20 11:42 Temperature 98.1 F 98.4 F Pulse Rate 87 115 H Respiratory Rate 18 16 Blood Pressure 134/85 114/79 Pulse Oximetry 95 99 98 Oxygen Delivery Method Room Air Oxygen Flow Rate 0 Narrative Exam Narrative: Excellent effort and cough. Lungs are clear. Heart regular rate and rhythm without murmur gallop. Wound around the chest tube was healthy. No cellulitis. Objective Labs Result Diagrams: 05/07/20 04:36 05/03/20 19:48 Discharge Assessment & Plan Assessment and Plan Assessment: Spontaneous pneumothorax. Resolved. No evidence of continued leak. Chest tube was removed and patient was discharged to follow up in the office. Discharge Plan Discharge Plan Patient Disposition: Home Discharge comment: If you developed chest pain shortness of breath or any symptoms like you had before you came to the emergency room you should return to the emergency room. Try to stop use of illicit drugs. Consider rehab. Discharge orders & Medications Prescriptions: No Action No Known Home Medications RF: 0 Follow up/Referrals: Donavan Holcomb MD [Physician] - 05/20/20 10:45 am (need sutures removed) Diet/Activity/Treatments Diet: Diet as Tolerated Skin/Wound/Dressing Care Report to your healthcare provider any signs of infection, such as:: increased pain, unusual drainage and unusual redness Dressing: You may remove the dressing in 2 days and shower. Keep a Band-Aid on the wound until it completely heals. Change the Band-Aid at least once a day. Quality VTE Deep Vein Thrombosis/Pulmonary Embolism Present on Admission: No
--- NOTE | 2020-05-09 15:36 | CM.DPNOTE ---
DCP Cont According to Dr Holcomb, patient will not be returning home, attempt to remove chest tube and patient's lung deflated. Likely replaced. Patient remains admitted for medical management. 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
[2020-05-09] MEDS: LACTATED RINGERS 1,000 ML 100 ML IV (16:01)
[2020-05-09] MEDS: CEFAZOLIN 2 GM/100 ML FROZ.PIGGY IV (16:01)
--- NOTE | 2020-05-09 16:47 | P.OP_ITS ---
Operative Date/Time/Diagnoses Date of procedure: 05/09/20 Time of procedure: 16:47 Pre-op diagnosis: Recall lapse of right long post removal of chest tube Post-op diagnosis: same Procedure & Clinicians Procedure: Her placement of chest tube Same procedure as scheduled: Yes Indications: Patient is a gentleman admitted with spontaneous pneumothorax. He initially had a pigtail catheter placed with re-expansion of his lung however over a period of observation is lung began to collapse. Larger tube was placed several days ago. There has been no air leak for at least 2 days. Repeat x-ray this morning showed a very small pneumothorax which is not unusual even when the lung is sealed. There was no fluctuation with respiration in the water seal chamber, and the chest tube was clamped. After 3 hour delay repeat chest x-ray showed no change in the very small Apical pneumothorax. Therefore his tube was removed. Dressing was applied and the dressing began to expand with air under it. Repeat chest x-ray showed the beginning of a reaccumulation of a pneumothorax. Surgeon: Donavan Holcomb Click Yes if Unassisted: Yes Anesthesia Type: MAC +/- and Sedation Operative Notes Findings: Good air vapor within the chest tube once in place. Digitally felt going between the ribs. Closure Type: not applicable Specimen(s): none sent Prosthetic devices, grafts, tissues, transplants, or devices: Twenty Pakistani chest tube Estimated Blood Loss (mL): 3 Blood products transfused: none Procedure in detail: The patient underwent deep sedation/monitored anesthesia care. The prior site and the subcu fat were cleansed with Betadine. The remainder of the chest wall was cleaned with chlorhexidine alcohol. The patient was draped in the usual fashion. Local anesthetic was infiltrated around the prior insertion site. The hole was quite small and I expanded it slightly. It was large enough for me to admit a finger and feel for the defect. I probed the wound and identified the prior opening in the chest wall. I expanded this opening and felt with the finger to be sure I was in the pleural cavity. I was. A 20 Pakistani chest tube was inserted and aimed toward the apex. It had good water vapor raise a wilcox of the tube. It was connected to the Pleur-Evac and there was good movement of the column of water in the water seal chamber and some bubbling. The chest tube was secured to the chest wall with interrupted 0 silk sutures. Xeroform and gauze were placed over the chest. It was secured with tape. Postprocedure x-ray shows a tube in good position in the lung re- expanded. Complications: none Post-operative Condition: stable Disposition: Acute Care Plan for aftercare: Further observation and pain control
[2020-05-09] MEDS: MORPHINE 4 MG/ML INJ IV (17:03)
[2020-05-09] MEDS: HYDROMORPHONE 1 MG INJ (17:04)
[2020-05-09] MEDS: LIDOCAINE 1% 20 ML (17:04)
[2020-05-09] MEDS: KETOROLAC 30 MG/ML VIAL IV (18:25)
--- NOTE | 2020-05-09 19:02 | PC.NURSE ---
Addendum entered by Chen Natarajan R.N. 05/09/20 22:43: [id number] Holcomb regarding drainage on dressing of newly inserted chest tube and NPO status, new orders received. General diet order placed and changed current dressing, pt tolerated well. Currently sitting up in bed eating, no further needs at this time, will continue to monitor. Original Note: Evening shift note Pt moved from room 221, where pt was expecting to go home, after a cxr was completed and discovered that the right lung had collapsed after the chest tube removal. Dr. Holcomb at bedside, orders to move pt to room 228 in ICU to insert chest tube at bedside with anesthesia assistance. Pt relocated to room 228 in ICU for anesthesia monitoring. Pt allowed to take a shower prior to procedure. VSS, denying pain at this time, pt very upset to have to have chest tube replaced, but understands the need. [id number] Holcomb, anesthesiologist, and this nurse at bedside, MAC and sedation used, pt tolerated procedure well, woke without difficulty, but was in extreme pain. Verbal orders to give 1mg dilaudid, after the 4 mg of Morphine did not help. Pt resting in bed, new IV placed in left hand, IV in LAC infiltrated and removed with catheter intact. Chest tube connected to suction, 20cm pleurevac. Dressing in place, re-enforced dressing due to drainage. Bed low and locked, call light within reach, will continue to monitor.
[2020-05-09] MEDS: polyethylene glycoL 3350 17 GM POWD.PACK PO (21:15)
--- NOTE | 2020-05-09 23:30 | DI.RAD.S_ITS ---
PROCEDURE: XR CHEST 1V INDICATIONS: f/u chest tube clamped 11:30 am TECHNIQUE: One view of the chest was acquired. COMPARISON: [facility], CR, XR CHEST 1V, 05/08/2020, 5:33. [facility], CR, XR CHEST 1V, 05/07/2020, 5:20. [facility], CR, XR CHEST 1V, 05/06/2020, 16:07. [facility], CR, XR CHEST 1V, 05/06/2020, 5:31. [facility], CR, XR CHEST 1V, 05/05/2020, 5:49. [facility], CR, XR CHEST 1V, 05/04/2020, 6:45. [facility], CR, XR CHEST 1V, 05/03/2020, 21:11. [facility], CR, XR CHEST 1V, 05/03/2020, 19. :[address] [place] [address], CR, XR CHEST 1V, 05/09/2020, 8:14. FINDINGS: Surgical changes and devices: There is a stable right-sided chest tube. Lungs and pleura: There is a trace right apical pneumothorax seen, which is not significantly changed compared to the prior examination. Mediastinum: Mediastinal contours appear normal. Heart size is normal. Bones and chest wall: No suspicious bony lesions. Right-sided soft tissue gas is seen. IMPRESSION: Trace right apical pneumothorax, which is not significantly changed compared to the prior. Dictated by: Beny Parker M.D. on 05/09/2020 at 13:43 Approved by: Beny Parker M.D. on 05/09/2020 at 13:44
[2020-05-10] VITALS (8 sets, daily range): BP systolic 108–126; BP diastolic 65–73; PULSE 68–83; RESP 16–19; TEMP 36.3–36.9; O2SAT 95–98
[2020-05-10] MEDS: OXYCODONE IR 5 MG TABLET 10 MG PO ×2 (01:35→05:53)
[2020-05-10] MEDS: LACTATED RINGERS 1,000 ML 100 ML IV ×2 (01:38→11:40)
[2020-05-10] MEDS: KETOROLAC 30 MG/ML VIAL IV (04:57)
--- NOTE | 2020-05-10 07:58 | DI.RAD.S_ITS ---
PROCEDURE: XR CHEST 1V INDICATIONS: f/u after pneumothorax recurred. TECHNIQUE: One view of the chest was acquired. COMPARISON: [facility], CR, XR CHEST 1V, 05/09/2020, 16:48. [facility], CR, XR CHEST 1V, 05/09/2020, 15:17. FINDINGS: Surgical changes and devices: Right lateral chest tube in normal position near the apex. Lungs and pleura: Lungs are clear. No pleural effusions or new pneumothorax. The right AP goal slight pneumothorax continues to reduce and now is virtually undetectable open (perhaps measuring 2 mm in maximal thickness at this time Mediastinum: Mediastinal contours appear normal. Heart size is normal. Bones and chest wall: No suspicious bony lesions. Overlying soft tissues appear unremarkable. A small amount of subcutaneous emphysema is present at the margin of the chest tube course. IMPRESSION: Scant atypical remaining pneumothorax, right pleural drain in normal position. Dictated by: Seymour Rowe M.D. on 05/10/2020 at 8:20 Approved by: Seymour Rowe M.D. on 05/10/2020 at 8:22
[2020-05-10] MEDS: HEPARIN 5,000 UNIT/ML VIAL 5000 UNIT SUBCUT ×2 (08:33→22:19)
[2020-05-10] MEDS: polyethylene glycoL 3350 17 GM POWD.PACK PO (08:33)
[2020-05-10] MEDS: DOCUSATE 100 MG CAPSULE PO ×2 (08:33→22:18)
--- NOTE | 2020-05-10 14:36 | PM.PN.1 ---
Subjective Subjective Date Patient Seen: 05/10/20 Time Patient Seen: 14:36 Interval history: Patient breathing fine. Pain controlled. Exam Vital Signs (past 8 hours): - 05/10/20 07:00 05/10/20 08:38 Temperature 97.8 F 97.8 F Pulse Rate 68 Respiratory Rate 16 Blood Pressure 112/65 Pulse Oximetry 95 Oxygen Delivery Method Room Air Oxygen Flow Rate 0 Narrative Exam Narrative: Lungs are clear. Excellent respiratory effort. Heart regular rate and rhythm. Dressing intact. Objective Labs Result Diagrams: 05/07/20 04:36 05/03/20 19:48 Assessment & Plan Assessment & Plan narrative: Patient does not have an air leak today. There is no fluctuation the tube. His lung is re-expanded on x-ray. Plan to place him to water seal and repeat an x-ray in the morning. I am wondering if some how he had sucked air into his chest cavity despite the fact that the wound was covered with Vaseline gauze. I have not seen an air leak since I inserted the tube once his lung was expanded.. Quality VTE Deep Vein Thrombosis/Pulmonary Embolism Present on Admission: No
[2020-05-10] MEDS: OXYCODONE IR 10 MG TABLET PO ×2 (15:46→22:18)
[2020-05-10] MEDS: SODIUM CHLORIDE 0.9% FLUSH 10 ML IV (22:19)
[2020-05-10] MEDS: LORazepam 2 MG/ML INJ 0.5 MG IV (23:03)
[2020-05-11] MEDS: LORazepam 2 MG/ML INJ 0.5 MG IV ×2 (03:30→12:13)
[2020-05-11] MEDS: MORPHINE 4 MG/ML INJ IV ×2 (03:30→12:13)
--- NOTE | 2020-05-11 06:20 | PC.NURSE ---
6mL output of Right Chest Tube to water seal @-20; Dressing intact and clean Complained of severe pain at site. given morphine Ativan for anxiety PRN Tolerating Room air
[2020-05-11 07:00] VITALS: BP 109/61; PULSE 66; RESP 18; TEMP 36.9; O2SAT 96
--- NOTE | 2020-05-11 07:35 | DI.RAD.S_ITS ---
PROCEDURE: XR CHEST 1V INDICATIONS: chest tube to water seal TECHNIQUE: One view of the chest was acquired. COMPARISON: [facility], , XR CHEST 1V, 05/10/2020, 7:58. FINDINGS: Surgical changes and devices: Right chest tube No acute consolidation or pleural effusion. No residual pneumothorax identified Mediastinum: Mediastinal contours appear normal. Heart size is normal. Right chest wall soft tissue gas IMPRESSION: Status post placement of right chest tube, no residual pneumothorax identified No acute consolidation Dictated by: Alan Marcum M.D. on 05/11/2020 at 8:15 Approved by: Alan Marcum M.D. on 05/11/2020 at 8:17
--- NOTE | 2020-05-11 07:48 | PM.PN.1 ---
Subjective Subjective Date Patient Seen: 05/11/20 Time Patient Seen: 07:48 Interval history: Doing okay. Breathing okay. Exam Vital Signs (past 8 hours): - 05/11/20 07:00 Temperature 98.4 F Pulse Rate 66 Respiratory Rate 18 Blood Pressure 109/61 Pulse Oximetry 96 Oxygen Delivery Method Room Air Oxygen Flow Rate 0 Narrative Exam Narrative: Dressing intact. Lungs clear. No fluctuation with respiration and no air leak. Objective Imaging Chest x-ray: My impression: I do not see any pneumothorax on this morning's x-ray just taken. Tube was in good position. Labs Result Diagrams: 05/07/20 04:36 05/03/20 19:48 Assessment & Plan Assessment & Plan narrative: Doing well. Will clamp his tube. Quality VTE Deep Vein Thrombosis/Pulmonary Embolism Present on Admission: No
[2020-05-11 09:00] VITALS: O2SAT 98
[2020-05-11] MEDS: HEPARIN 5,000 UNIT/ML VIAL 5000 UNIT SUBCUT ×2 (12:12→20:38)
[2020-05-11] MEDS: SODIUM CHLORIDE 0.9% FLUSH 10 ML IV ×2 (12:14→20:38)
[2020-05-11] MEDS: polyethylene glycoL 3350 17 GM POWD.PACK PO ×2 (12:14→20:37)
[2020-05-11] MEDS: DOCUSATE 100 MG CAPSULE PO ×2 (12:14→20:37)
[2020-05-11 15:35] VITALS: BP 119/81; PULSE 82; RESP 18; TEMP 36.8; O2SAT 100
[2020-05-11] MEDS: OXYCODONE IR 10 MG TABLET PO (20:46)
[2020-05-11 23:00] VITALS: O2SAT 95
[2020-05-12] VITALS: BP 114/70; PULSE 70; RESP 12; TEMP 37; O2SAT 95
[2020-05-12] MEDS: OXYCODONE IR 10 MG TABLET PO ×2 (02:24→08:01)
--- NOTE | 2020-05-12 06:37 | DI.RAD.S_ITS ---
PROCEDURE: XR CHEST 1V INDICATIONS: CHEST TUBE TECHNIQUE: One view of the chest was acquired. COMPARISON: [facility], , XR CHEST 1V, 05/11/2020, 7:28. FINDINGS: Surgical changes and devices: Status post placement of right chest tube which appears grossly unchanged. Lungs and pleura: Lungs are clear. No pleural effusions or pneumothorax. Mediastinum: Mediastinal contours appear normal. Heart size is normal. Bones and chest wall: No suspicious bony lesions. Soft tissue gas in the right chest wall is again noted, unchanged. IMPRESSION: Unchanged right chest tube. No residual pneumothorax identified Dictated by: Alan Marcum M.D. on 05/12/2020 at 8:40 Approved by: Alan Marcum M.D. on 05/12/2020 at 8:41
[2020-05-12 07:55] VITALS: O2SAT 97
[2020-05-12] MEDS: SODIUM CHLORIDE 0.9% FLUSH 10 ML IV (07:57)
[2020-05-12] MEDS: DOCUSATE 100 MG CAPSULE PO (07:57)
[2020-05-12] MEDS: polyethylene glycoL 3350 17 GM POWD.PACK PO (07:57)
[2020-05-12 08:06] VITALS: BP 111/61; PULSE 75; RESP 16; TEMP 36.9; O2SAT 97
--- NOTE | 2020-05-12 11:14 | DI.RAD.S_ITS ---
PROCEDURE: XR CHEST 2V INDICATIONS: f/u after chest tube removal TECHNIQUE: 2 views of the chest were acquired. COMPARISON: [facility], , XR CHEST 1V, 05/12/2020, 6:46. FINDINGS: Surgical changes and devices: Right chest tube has been removed.. Lungs and pleura: Lungs are clear. No pleural effusions or pneumothorax. Mediastinum: Mediastinal contours are normal. Heart size is normal. Bones and chest wall: No suspicious bony abnormalities. Right chest soft tissue gas as before IMPRESSION: No pneumothorax identified, status post removal of right chest tube. Dictated by: Alan Marcum M.D. on 05/12/2020 at 11:41 Approved by: Alan Marcum M.D. on 05/12/2020 at 11:42
--- NOTE | 2020-05-12 12:36 | CM.DPC ---
DCP Cont: Per MD, pt remained stable after chest tube clamped yesterday and CT completed with no signs of concern. Chest tube removed and further CT showed no signs of concern or pneumothorax. Per Rn, pt remains compliant and states he is ready to d/c home and feeling better. Plan: SW to follow for likely pt d/c home either later tonight or tomorrow if remains stable with removal of chest tube. JAMIA Torres
--- NOTE | 2020-05-12 14:00 | PC.NURSE ---
Dr. Holcomb removed chest tube 1110. Pt tolerated well. CXR obtained and reported to MD. Orders received for discharge to home. Reviewed discharge packet, educational material, f/u appt, s/s of recurrent pneumo, when to seek emergency medical treatment. Instructed pt not to smoke. Pt states he usually vapes but will not do so while he's healing. He verbalizes understanding of discharge teaching. PIV removed with cath tip intact. Pt left in no distress with all belongings at 1403 via w/c.
--- NOTE | 2020-05-21 16:06 | P.DS_ITS ---
History of Present Illness History of Present Illness Chief complaint: Pain in his chest, hard to breath,cough Narrative: The patient is a gentleman who was admitted with a spontaneous pneumothorax. Discharge Providers Provider Date of admission: 05/03/20 21:53 Discharge Date: 05/12/20 Discharge provider: Donavan Holcomb MD Summary Hospital Course Discharge Diagnosis: spontaneous pneumothorax methamphetamine abuse Hospital Course: the patient had a pigtail catheter inserted with good re solution initially of his pneumothorax. However there was a small area that was resistant to re-expansion and slowly became larger. He underwent deep sedation at his insistence in order to place a larger tube. With the insertion of this larger to his lung re-expanded. There was no air leak and no modulation with respiration. The tube was taken off suction and repeat x-ray showed a very tiny pneumothorax in the apex of the right lung. The tube was clamped for 3 hours and there was no expansion of this small pneumothorax. The tube was removed and the patient developed an immediate enlargement of his pneumothorax. The tube was replaced and there was no air leak and no modulation and the pneumothorax resolved. He was observed on suction and taken off suction and then the lung was fully expanded the tube was clamped for 24 hours and the lung remained inflated. The tube was removed and his post removal x-ray showed complete expansion of his lung. Status at Discharge Cognitive/behavioral status at discharge: oriented Functional status at discharge: independent ambulation Overall status at discharge: patient is back to baseline Time Spent with Patient Time spent: Greater than 30 minutes Exam Vital Signs (past 8 hours): Oxygen Delivery Method Room Air Oxygen Flow Rate 0 Narrative Exam Narrative: Lungs clear. No evidence of cellulitis At the chest tube site. Good air movement bilaterally. Objective Labs Result Diagrams: 05/07/20 04:36 05/03/20 19:48 Discharge Assessment & Plan Assessment and Plan Assessment: Spontaneous pneumothorax. Resolved. No evidence of continued leak. Chest tube was removed and patient was discharged to follow up in the office. Discharge Plan Discharge Plan Patient Disposition: Home Discharge comment: If you developed chest pain shortness of breath or any symptoms like you had before you came to the emergency room you should return to the emergency room. Try to stop use of illicit drugs. Consider rehab. Discharge orders & Medications Prescriptions: No Action No Known Home Medications RF: 0 Follow up/Referrals: Donavan Holcomb MD [Physician] - 05/20/20 10:45 am (need sutures removed) Diet/Activity/Treatments Diet: Diet as Tolerated Skin/Wound/Dressing Care Report to your healthcare provider any signs of infection, such as:: increased pain, unusual drainage and unusual redness Dressing: You may remove the dressing in 2 days and shower. Keep a Band-Aid on the wound until it completely heals. Change the Band-Aid at least once a day. Visit Report/Discharge Packet Instructions: DI for Pneumothorax Visit Report Forms: Patient Portal/API, Stroke Signs & Symptoms Discharges patient from system. Discharge Date/Time: 05/12/20 14:03 Quality VTE Deep Vein Thrombosis/Pulmonary Embolism Present on Admission: No
== END 2020-05-12 14:03 | disposition home or self-care (01) | DRG 143 ==
LOC: ED 21:51 → ICU 21:54 → AC 05-07 13:17 → ICU 05-09 15:31
PROVIDERS: Surgery; Admitting Provider Surgery; Emergency Provider Emergency Medicine; Referring Provider Surgery; Visit Provider Surgery
PROC: 0W9900Z Drainage of Right Pleural Cavity with Drainage Device, Open Approach (ICD-10-PCS; CPT 32551; principal; 2020-05-06 14:00)
DX: J93.11 Primary spontaneous pneumothorax (principal); K59.00 Constipation, unspecified; F17.210 Nicotine dependence, cigarettes, uncomplicated; Z11.59 Encounter for screening for other viral diseases; F15.10 Other stimulant abuse, uncomplicated
CPT/HCPCS: 32551; 36415; 71045; 71046; 80053; 82550; 83690; 84484; 85025; 85610; 85730; 87635; 93005; 96374; 99221; 99231; 99238; 99285; 99406; J0690; J1170; J1644; J1885; J2060; J2250; J2270; J2704; J3010